=== PATIENT | female | born 1975 | race Caucasian/White ===

== ENCOUNTER 2016-05-06 14:42 | Emergency (ER) | payer MEDICAID, SELFPAY ==
[~2016-05-06] VITALS: Ht 175.3 cm; Wt 86.2 kg
[2016-05-06] MEDS ORDERED: ONDANSETRON 4 MG ORAL DISINTEGRATING TAB (S0181) PO ONE (18:15)
[2016-05-06] MEDS ORDERED: AMOX500C PO (19:05)
[2016-05-06] MEDS ORDERED: ZOFR4TAB3 PO (19:05)
[2016-05-06] MEDS ORDERED: AMOXICILLIN 500 MG CAP PO ONE (19:15)
[2016-05-06] MEDS ORDERED: ACETAMINOPHEN 325 MG TAB PO ONE (19:15)
[2016-05-06 19:22] VITALS: BP 132/87
== END 2016-05-06 19:27 | disposition home or self-care (01) ==
LOC: M ED 16:01
DX: J02.9 Acute pharyngitis, unspecified (principal); R11.2 Nausea with vomiting, unspecified; Z88.8 Allergy status to other drugs, medicaments and biological substances

== ENCOUNTER → 2016-07-09 | Outpatient (REF) | payer MEDICAID ==
[~2016-07-09] MED LIST: AMOX500C PO; ZOFR4TAB3 PO
== END ==
LOC: M SFHCLERA 12:53
PROVIDERS: ATTEND Nurse Practitioner Family
DX: J02.9 Acute pharyngitis, unspecified (principal)

== ENCOUNTER 2018-02-16 14:30 | Emergency (ER) | payer OTHER, MEDICAID ==
[~2018-02-16] VITALS: Ht 172.7 cm; Wt 78.5 kg
[~2018-02-16 14:30] MED LIST changes: +ZOFR4TAB14 PO; -ZOFR4TAB3 PO
--- NOTE | 2018-02-16 15:27 | REP ---
Clinical: Trauma. Technique: AP, lateral, bilateral oblique views of the right hand. Findings: No obvious acute fracture or dislocation. Skeletal structures, joint spaces, and surrounding soft tissues are normal. No subcutaneous emphysema or foreign body. Impression: No acute fracture or dislocation. Electronically Signed by Jose Hyatt MD 02/16/2018 03:19 P
[2018-02-16] MEDS ORDERED: IBUPROFEN 800 MG TAB PO ONE (15:45)
[2018-02-16 16:45] VITALS: BP 133/84
== END 2018-02-16 16:48 | disposition home or self-care (01) ==
LOC: M ED 14:30
DX: S60.052A Contusion of left little finger without damage to nail, initial encounter (principal); W23.1XXA Caught, crushed, jammed, or pinched between stationary objects, initial encounter; Y92.89 Other specified places as the place of occurrence of the external cause

== ENCOUNTER 2019-04-05 10:50 | Emergency (ER) | payer MEDICAID, OTHER, SELFPAY ==
[~2019-04-05] VITALS: Ht 175.3 cm; Wt 82.3 kg
[2019-04-05] MEDS ORDERED: IMIT6KIT SC ×2 (12:46→13:54)
[2019-04-05] MEDS ORDERED: NON-325T5 PO (12:46)
[2019-04-05] MEDS ORDERED: SUMAtriptan SUCCINATE 6 MG/0.5 ML VIAL SC ONE (13:00)
[2019-04-05 13:59] VITALS: BP 132/88
== END 2019-04-05 14:01 | disposition home or self-care (01) ==
LOC: M ED 10:50
DX: G43.909 Migraine, unspecified, not intractable, without status migrainosus (principal); F17.200 Nicotine dependence, unspecified, uncomplicated; Z88.8 Allergy status to other drugs, medicaments and biological substances

== ENCOUNTER → 2020-05-19 | Outpatient (CLI) | payer OTHER ==
[~2020-05-19] MED LIST changes: +ACET-838 PO; +IMIT6KIT SC
--- NOTE | 2020-05-19 17:38 | REP ---
INDICATION: SPONDYLOLISTHESIS. COMPARISON: 10/14/2013. TECHNIQUE: Multiple sequences obtained in the axial and sagittal planes. FINDINGS: There is no compression fracture. There is mild anterior grade 1 spondylolisthesis of L5 on S1 which has increased since the prior study. There is spondylolysis of L5. Degenerative disc desiccation is noted at the L5-S1 level. There is degenerative signal in the adjacent endplates of L5 and S1. Anterior spurs are noted. There is severe bilateral neural foraminal narrowing at that level. Spinal canal is adequate. The discs from L1-2 through L4-5 are unremarkable with no significant degenerative signal, disc bulging or herniation. The conus is unremarkable. IMPRESSION: Spondylolysis L5 with anterior grade 1 spondylolisthesis of L5 on S1, increased since prior 14. Degenerative disc changes L5-S1 as discussed above. Severe bilateral neural foraminal narrowing at that level. <Electronically signed by Rhett Trujillo > 05/19/20 [id number]
== END ==
LOC: M PLARAD 09:17
PROVIDERS: ATTEND Physician Assistant
DX: M43.10 Spondylolisthesis, site unspecified (principal)

== ENCOUNTER → 2023-06-05 | Outpatient (CLI) | payer OTHER ==
[~2023-06-05] MED LIST changes: -ACET-838 PO; +ACET32TAB PO; +ISOVUE-370 76% 100ML VIAL As Ordered ONE
== END ==
LOC: M RAD 06-04 16:15
PROVIDERS: ATTEND Nurse Practitioner
DX: A49.9 Bacterial infection, unspecified (principal); Z96.82 Presence of neurostimulator
CPT/HCPCS: 72132; Q9967

== ENCOUNTER 2024-05-20 18:45 | Emergency (ER) | payer MEDICAID, OTHER ==
[~2024-05-20] VITALS: Ht 175.3 cm; Wt 106.4 kg
[~2024-05-20 18:45] MED LIST changes: -ISOVUE-370 76% 100ML VIAL As Ordered ONE
[2024-05-20] MEDS ORDERED: ATOR1TAB21 (18:51)
[2024-05-20] MEDS ORDERED: GABA-1490 (18:51)
[2024-05-20] MEDS ORDERED: LISI5TAB11 (18:51)
[2024-05-20] MEDS ORDERED: CELE0.09 (18:51)
[2024-05-20] MEDS ORDERED: INCR1INH (18:51)
[2024-05-20] MEDS ORDERED: VARE1TAB2 (18:51)
[2024-05-20] MEDS ORDERED: AMIT75TA (18:51)
[2024-05-20] MEDS ORDERED: INDO50CA91 PO (20:27)
[2024-05-20] MEDS: INDOMETHACIN 25 MG CAP PO ONE (20:45)
[2024-05-20 20:48] VITALS: BP 152/88; TEMP 98.1; O2SAT 99
== END 2024-05-20 20:49 | disposition home or self-care (01) ==
LOC: M ED 18:45
DX: G56.91 Unspecified mononeuropathy of right upper limb (principal); G43.909 Migraine, unspecified, not intractable, without status migrainosus; I10 Essential (primary) hypertension; Z79.02 Long term (current) use of antithrombotics/antiplatelets; Z79.899 Other long term (current) drug therapy; Z88.6 Allergy status to analgesic agent